=== PATIENT | male | born 1995 | race Caucasian/White ===

== ENCOUNTER 2016-07-31 20:16 | Emergency (ER) | payer SELFPAY ==
[~2016-07-31] VITALS: Ht 167.6 cm; Wt 63.5 kg
[2016-07-31 20:22] VITALS: BP 125/77
== END 2016-07-31 21:24 | disposition left against medical advice (07) ==
LOC: EDBD 20:16 → ER 20:23
DX: M54.9 Dorsalgia, unspecified (principal); Z53.21 Procedure and treatment not carried out due to patient leaving prior to being seen by health care provider; Y08.89XA Assault by other specified means, initial encounter; Y93.89 Activity, other specified; Y99.8 Other external cause status; Y92.512 Supermarket, store or market as the place of occurrence of the external cause